=== PATIENT | female | born 1995 | race Caucasian/White ===

== ENCOUNTER 2019-12-20 10:28 | Emergency (ER) | payer OTHER ==
[2019-12-20] MEDS ORDERED: Rabies Vaccine Human 2.5 UNITS VIAL IM ONE (12:00)
== END 2019-12-20 12:50 | disposition home or self-care (01) ==
LOC: ERS 10:28
DX: Z23 Encounter for immunization (principal); S60.511D Abrasion of right hand, subsequent encounter; W55.01XD Bitten by cat, subsequent encounter
CPT/HCPCS: 90471; 90675

== ENCOUNTER → 2019-12-23 | Day surgery (SDC) | payer OTHER ==
[~2019-12-23] MED LIST: Rabies Vaccine Human 2.5 UNITS VIAL IM ONE
== END ==
LOC: ER/OP 11:54
DX: Z29.14 Encounter for prophylactic rabies immune globulin (principal)
CPT/HCPCS: 90471; 90675